=== PATIENT | female | born 1945 | race Caucasian/White ===

== ENCOUNTER 2016-05-20 02:42 | Outpatient (CLI) | payer OTHER ==
[2012-07-07 05:46] VITALS: BP 126/79
[2016-05-20 14:50] LABS: BASOPHILS % 0.4 (0.0-1.5); EOSINOPHILS % 4.5 % (0.0-6.8); LYMPHOCYTES # 1.7 # k/uL (0.6-4.0); MEAN CORPUSCULAR HEMOGLOBIN 30.7 pg (28.0-34.0); MONOCYTES # 0.3 # k/uL (0.0-0.9); MONOCYTES % 5.9 % (0.0-11.0); NEUTROPHILS # 2.4 # k/uL (1.4-7.7)
[2016-05-20 15:12] LABS: eGFR (African) > 60; eGFR (Non-African) > 60
== END 2016-05-20 02:43 ==
LOC: LAB 02:42
PROVIDERS: ATTEND Family Medicine
DX: I10 Essential (primary) hypertension (principal); Z51.81 Encounter for therapeutic drug level monitoring
CPT/HCPCS: 36415; 80053; 85025

== ENCOUNTER 2016-09-11 20:19 | Emergency (ER) | payer OTHER ==
--- NOTE | 2016-09-11 21:28 | ED Physician Documentation ---
General Adult - HISTORIAN Historian: patient, friend - [facility] Stated Complaint: injury to lt wrist/not feeling quite right Chief Complaint: General Adult Additional Information: condern re bp slight bruise lt wrist multi vague c/o switches from topic to topic w/o obvious connection Onset: days ago (several) Timing: still present Severity: mild - ROS CONST: other (anxiety apparent) EYES/ENT: denies: problems with vision CVS/RESP: none, shortness of breath, cough GI/: none MS/SKIN/LYMPH: other (slight non descript rash lt chest) NEURO/PSYCH: anxiety, depression - PAST HX Past History: hypertension, other (depressioon anxiety bipolar) Surgeries/Procedures: BTL, other (hip t and a knee scope) Allergies/Adverse Reactions: Allergies Allergy/AdvReac Type Severity Reaction Status Date / Time Penicillins Allergy Intermediate Verified 07/07/12 04:41 amitriptyline Allergy Mild Abdominal Unverified 02/16/15 14:25 Bloating ciprofloxacin HCl Allergy Mild Verified 07/07/12 04:41 [From Cipro] alprazolam [From Xanax] Allergy Unverified 06/05/13 08:39 acetaminophen [From Vicodin] AdvReac Unknown Unverified 06/05/13 08:39 hydrocodone bitartrate AdvReac Unknown Unverified 06/05/13 08:39 [From Vicodin] ketorolac tromethamine AdvReac Unknown Unverified 06/05/13 08:39 [From Toradol] oxycodone [Oxycodone] AdvReac Unknown Unverified 06/05/13 08:39 ziprasidone HCl [From Geodon] AdvReac Unknown Unverified 06/05/13 08:39 ziprasidone mesylate AdvReac Unknown Unverified 06/05/13 08:39 [From Geodon] Tetanus Vaccines & Toxoid AdvReac Unverified 06/05/13 08:39 [Tetanus Vaccines \T\ Toxoid] contrast dye AdvReac Unknown Uncoded 06/05/13 08:36 - SOCIAL HX Smoking History: non-smoker Alcohol Use: none Drug Use: none - FAMILY HX Family History: No - VITAL SIGNS Vital Signs: Vital Signs Temp Pulse Resp BP Pulse Ox 98.5 F 97 H 18 146/81 97 09/11/16 20:19 09/11/16 20:19 09/11/16 20:19 09/11/16 20:19 09/11/16 20:19 - REVIEWED ASSESSMENTS Nursing Assessment Reviewed: Yes Vitals Reviewed: Yes General Adult Physical Exam - PHYSICAL EXAM GENERAL APPEARANCE: no distress (except apparent anxiety) NECK: normal inspection, thyroid normal, supple. No: carotid bruit RESPIRATORY: no resp distress, chest non-tender, breath sounds normal CVS: reg rate & rhythm, heart sounds normal ABDOMEN: soft, non-tender SKIN: warm/dry, normal color. No: cyanosis, diaphoresis, jaundice EXTREMITIES: non-tender, normal range of motion, no evidence of injury, no edema NEURO: oriented X3, motor nml, sensation nml Discharge Clincal Impression: hx htn, anxiety depression bipolar, slight bruise lt wrist fr bp cuff Referrals: Derek Tipton MD [Primary Care Provider] - 2 Days Condition: Good Disposition: 01 HOME, SELF-CARE Decision to Admit: NO Decision Time: 21:21
[2016-09-11 22:33] VITALS: BP 150/84
== END 2016-09-11 21:39 | disposition home or self-care (01) ==
LOC: ED 20:19
DX: I10 Essential (primary) hypertension (principal); F32.9 Major depressive disorder, single episode, unspecified
CPT/HCPCS: 99282

== ENCOUNTER 2016-11-07 16:30 | Outpatient (CLI) | payer OTHER | END 2016-11-07 16:32 | LOC: LABRHC 16:30 | PROVIDERS: ATTEND Family Medicine | DX: L98.9 Disorder of the skin and subcutaneous tissue, unspecified (principal) ==

== ENCOUNTER 2017-05-12 14:52 | Outpatient (CLI) | payer OTHER ==
--- NOTE | 2017-05-12 19:25 | Diagnostic Imaging Report ---
LATOSHA CAMARGO [facility] [address] [facility] [address] [address] Report Submission Date: May 12, 2017 3:39:05 PM CERTIFIED ENERGY MANAGER Patient Study Name: RACQUEL FERNANDEZ Date: May 12, 2017 3:14:27 PM CERTIFIED ENERGY MANAGER Modality Type: CR Gender: F Description: CHEST : 47 Institution: [facility] Physician: LATOSHA CAMARGO Examination: PA and lateral chest. History: CXR, COUGH FOR A FEW WEEKS (Hx) / COUGH (DICOM Hx) / COUGH (Pt comments ) Comparison exam: None available for direct review Findings: PA lateral chest demonstrate a normal cardiac and mediastinal silhouette. Tortuous aorta. No focal infiltrate. No blunting of the costophrenic margins. Apical granuloma. Osseous structures are appropriate for age. Impression: No acute appearing pulmonary process. Electronically signed on May 12, 2017 3:39:05 PM CERTIFIED ENERGY MANAGER by: Scooter LAURA
== END 2017-05-12 14:53 ==
LOC: RAD 14:52
PROVIDERS: ATTEND Physician Assistant
DX: R05 Cough (principal)
CPT/HCPCS: 71020

== ENCOUNTER 2017-05-17 14:31 | Outpatient (CLI) | payer OTHER ==
--- NOTE | 2017-05-19 09:50 | OP Clinic Progress Note ---
REASON FOR VISIT: This 72-year-old lady is seen with a history of some otalgia of the left ear. She also has a history of cerumen. Patient has cerumen in both ears, more in the left ear than in the right. I debrided and cleaned this under the microscope in the clinic. The eardrums are otherwise unremarkable. I do not see fluid, perforation, nor erythema. The patient felt like her ear felt better. She was given instructions that if the discomfort of the left ear does not resolve, that she may return on a p.r.n. basis. In addition, the oral cavity, oropharynx, and larynx are fairly unremarkable. She has fairly small tonsils. I see no evident mass. She has mild diffuse rhinitis. PLAN: Patient is returned to the continued care of Dr. Tipton. cc: Dr. Derek LAURA
== END 2017-05-17 14:33 ==
LOC: ENT 14:31
PROVIDERS: ATTEND Otolaryngology
DX: H61.23 Impacted cerumen, bilateral (principal); J30.9 Allergic rhinitis, unspecified
CPT/HCPCS: 69220; G0463

== ENCOUNTER 2017-11-29 15:06 | Outpatient (CLI) | payer OTHER ==
--- NOTE | 2017-11-29 18:52 | Diagnostic Imaging Report ---
BOBBI NEWMAN [facility] [address] [facility] [address] Report Submission Date: Nov 29, 2017 4:16:51 PM CDT Patient Study Name: RACQUEL FERNANDEZ Date: Nov 29, 2017 3:06:41 PM CDT Modality Type: DX Gender: F Description: UPPER EXTREMITY : 47 Institution: [facility] Physician: BOBBI NEWMAN Bilateral wrists, 3 views each. HISTORY Wrist pain. FINDINGS Right and left wrist are demineralized. There is no fracture or abnormal bone destruction. There is mild joint space narrowing at the right and left radiocarpal joints. IMPRESSION Osteopenia. Mild degenerative change. No acute abnormality. Electronically signed on Nov 29, 2017 4:16:51 PM CDT by: Faizan LAURA
== END 2017-11-29 15:08 ==
LOC: RAD 15:06
PROVIDERS: ATTEND Family Medicine
DX: M25.531 Pain in right wrist (principal); M25.532 Pain in left wrist

== ENCOUNTER 2018-01-03 13:05 | Outpatient (CLI) | payer OTHER ==
--- NOTE | 2018-01-03 14:23 | OP Clinic Progress Note ---
REASON FOR VISIT: Melba is seen unaccompanied in follow up of left-sided otalgia. I debrided and cleaned the left ear last time. By her voluntary estimation, the ear is significantly better. She said it is 80% better. She still has a mild amount of inflammation right at the meatus area. I debrided and cleaned additional hard crusted skin right at the meatus. The eardrum is, otherwise, essentially normal. It is somewhat stiff and it is somewhat retracted, but there is no hole, perforation, or increased erythema, and no middle ear fluid. In addition, to check to see if there was some referred otalgia from the pharynx or larynx, I used a flexible fiberoptic laryngoscope through the left nostril with a pediatric scope which she tolerated well. There was mild inflammation of the nasopharynx, but I really do not see an erosive mass. There was no blood. It is really symmetrical right side and left side. The tongue base appears to be clear. The hypopharynx also appears to be clear. The vocal cords abduct and adduct well. There is no evident mass of the supraglottic larynx nor the vocal cords nor the pyriform sinuses. There was no cervical lymphadenopathy. She is not tender in her neck in addition. PLAN: After debriding and cleaning the ear and putting some triple antibiotic ointment right at the meatus, she felt the ear, again, felt better. She also felt that she could hear better as voluntary statements. I recommended that I would be happy to see her again in 6 months and she can return p.r.n. sooner. cc: Dr. Derek LAURA
== END 2018-01-03 13:06 ==
LOC: ENT 13:05
PROVIDERS: ATTEND Otolaryngology
DX: H92.02 Otalgia, left ear (principal); J39.2 Other diseases of pharynx
CPT/HCPCS: 31575; 69210; G0463

== ENCOUNTER 2018-01-04 11:02 | Outpatient (CLI) | payer OTHER ==
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
== END 2018-01-04 11:04 ==
LOC: RAD 11:02
PROVIDERS: ATTEND Podiatrist Foot & Ankle Surgery
DX: M79.671 Pain in right foot (principal); M25.571 Pain in right ankle and joints of right foot; M79.672 Pain in left foot; M25.572 Pain in left ankle and joints of left foot

== ENCOUNTER 2018-02-02 01:32 | Emergency (ER) | payer OTHER ==
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
[2018-02-02 03:41] VITALS: BP 151/77
--- NOTE | 2018-02-02 07:43 | Diagnostic Imaging Report ---
LEOLA MARINELLI [facility] [address] [facility].[address] [address] Report Submission Date: Feb 02, 2018 2:53:00 AM CDT Patient Study Name: RACQUEL FERNANDEZ Date: Feb 02, 2018 2:26:33 AM CDT Modality Type: DX Gender: F Description: LOWER EXTREMITY : 47 Institution: [facility] Physician: LEOLA MARINELLI Right knee, three views. History: PT STATES RIGHT KNEE PAIN AFTER WALKING DOWN HALLWAY X 4 HOURS AGO Findings: The osseous structures are intact without acute fracture. Mild narrowing of the knee joint space is present. There is no soft tissue swelling. No joint effusion. Impression: 1. No acute osseous abnormality. Electronically signed on Feb 02, 2018 2:53:00 AM CDT by: Carlos Eduardo LAURA
== END 2018-02-02 03:37 | disposition home or self-care (01) ==
LOC: ED 01:32
DX: M25.561 Pain in right knee (principal)
CPT/HCPCS: 73562

== ENCOUNTER 2018-04-04 15:28 | Outpatient (CLI) | payer OTHER ==
[2018-04-04 16:29] LABS: eGFR (Non-African) > 60
== END 2018-04-04 15:30 ==
LOC: LAB 15:28
PROVIDERS: ATTEND Clinical Nurse Specialist Medical-Surgical
DX: M81.0 Age-related osteoporosis without current pathological fracture (principal); R26.9 Unspecified abnormalities of gait and mobility; Z87.310 Personal history of (healed) osteoporosis fracture
CPT/HCPCS: 36415; 80053; 82306; 83970

== ENCOUNTER 2018-05-16 13:26 | Outpatient (CLI) | payer OTHER | END 2018-05-16 13:28 | LOC: LAB 13:26 | PROVIDERS: ATTEND Clinical Nurse Specialist Medical-Surgical | DX: M81.0 Age-related osteoporosis without current pathological fracture (principal); R26.9 Unspecified abnormalities of gait and mobility; E55.9 Vitamin D deficiency, unspecified; E21.5 Disorder of parathyroid gland, unspecified; Z87.310 Personal history of (healed) osteoporosis fracture | CPT/HCPCS: 36415; 82306; 82310; 82330 ==